=== PATIENT | male | born 1970 | race African-American/Black ===

== ENCOUNTER 2018-02-07 19:53 | Inpatient (IN) | END 2018-02-12 18:50 | DRG 65 ==

== ENCOUNTER 2018-02-12 19:58 | Inpatient (IN) | END 2018-02-18 04:14 | disposition short-term general hospital (02) | DRG 57 ==

== ENCOUNTER 2018-02-18 05:04 | Inpatient (IN) | END 2018-02-22 22:18 | DRG 176 ==

== ENCOUNTER 2018-02-22 22:14 | Inpatient (IN) | END 2018-03-01 11:35 | disposition home health service (06) | DRG 56 ==